=== PATIENT | female | born 1955 | race Caucasian/White ===

== ENCOUNTER 2019-03-02 08:38 | Day surgery (SDC) | payer OTHER ==
[2019-03-02] MEDS ORDERED: PROPOFOL 40 ML (11:05)
== END 2019-03-02 12:42 | disposition home or self-care (01) ==
LOC: GIL 08:38
DX: R19.4 Change in bowel habit (principal); K64.8 Other hemorrhoids; K57.30 Diverticulosis of large intestine without perforation or abscess without bleeding; D12.8 Benign neoplasm of rectum; K44.9 Diaphragmatic hernia without obstruction or gangrene; K21.0 Gastro-esophageal reflux disease with esophagitis; R73.03 Prediabetes
CPT/HCPCS: 43239; 88305; 88312